=== PATIENT | male | born 1985 | race Caucasian/White ===

== ENCOUNTER 2018-10-17 10:36 | Emergency (ER) | payer OTHER ==
[2018-10-17 10:48] VITALS: BP 132/83
--- NOTE | 2018-10-17 11:08 | ED Physician Documentation ---
PD HPI BACK PAIN - Stated complaint Stated Complaint: BACK PX - Chief complaint Chief Complaint: Back Pain - History obtained from History obtained from: Patient - History of Present Illness Timing - onset: How many days ago (several) Timing - duration: Days (several) Timing - details: Gradual onset Pain level max: 8 Pain level now: 4 Location: Upper, Mid, Right Quality: Pain, Spasm, Similar to prior episodes Associated symptoms: No: Fever, Weakness, Numbness, Incontinent of urine, Unable to urinate, Hematuria, Incontinent of stool Improves with: Rest Worsened by: Movement Contributing factors: Lifting, Twisting, Other (works construction) - Additional information Additional information: has flexeril from his chiropractor, states this helped. Review of Systems Constitutional: denies: Fever Throat: denies: Sore throat Cardiac: denies: Chest pain / pressure Respiratory: denies: Dyspnea, Cough, Hemoptysis, Wheezing GI: denies: Nausea, Vomiting, Diarrhea Skin: denies: Rash Musculoskeletal: denies: Neck pain, Back pain Neurologic: denies: Headache PD PAST MEDICAL HISTORY - Past Medical History Past Medical History: Yes GI: GERD Musculoskeletal: Chronic back pain - Past Surgical History Past Surgical History: No - Present Medications Home Medications: Ambulatory Orders Medication Instructions Recorded Confirmed Cyclobenzaprine [Flexeril] 10 mg PO ONCE 10/17/18 10/17/18 Esomeprazole Magnesium [Nexium] 20 mg PO DAILY 10/17/18 10/17/18 Loratadine [Claritin] 10 mg PO DAILY 10/17/18 10/17/18 Meloxicam [Mobic] 15 mg PO DAILY PRN #20 tablet 10/17/18 Methocarbamol [Robaxin] 500 mg PO Q6H PRN #14 tablet 10/17/18 - Allergies Allergies/Adverse Reactions: Allergies Allergy/AdvReac Type Severity Reaction Status Date / Time No Known Drug Allergies Allergy Verified 10/17/18 10:48 PD ED PE NORMAL - Vitals Vital signs reviewed: Yes - General General: Alert and oriented X 3, No acute distress, Well developed/nourished - HEENT HEENT: Moist mucous membranes - Neck Neck: Supple, no meningeal sign, No bony TTP - Cardiac Cardiac: RRR, No murmur, Strong equal pulses - Respiratory Respiratory: No respiratory distress, Clear bilaterally - Abdomen Abdomen: Normal bowel sounds, Soft, Non tender, Non distended - Back Back: No CVA TTP, No spinal TTP, Other (paraspinal tenderness upper thoracic right side, rhomboid area. NVI. ) - Derm Derm: Warm and dry, No rash - Neuro Neuro: Alert and oriented X 3 - Psych Psych: Normal mood, Normal affect Results - Vitals Vitals: Vital Signs - 24 hr 10/17/18 10:44 Temperature 36.8 C Heart Rate 87 Respiratory 18 Rate Blood Pressure 132/83 H O2 Saturation 99 Oxygen O2 Source Room air PD MEDICAL DECISION MAKING - ED course Complexity details: considered differential (No cauda equina, no spinal epidural abscess, no fracture, no aortic dissection or evidence of aneursym rupture), d/w patient ED course: 32-year-old male presents with a likely rhomboid muscle strain, but also possible paraspinal muscle spasm and strain. Will trial on Robaxin and meloxicam. We will have him follow-up with his doctor for further care. No evidence of epidural abscess, pneumothorax, Cholecystitis. Patient counseled regarding signs and symptoms for which I believe and urgent re-evaluation would be necessary. Patient with good understanding of and agreement to plan and is comfortable going home at this time This document was made in part using voice recognition software. While efforts are made to proofread this document, sound alike and grammatical errors may occur. Departure - Departure Disposition: 01 Home, Self Care Clinical Impression: Back muscle spasm Condition: Good Instructions: ED Spasm Back No Trauma Follow-Up: GINA PATTERSON [Primary Care Provider] - Within 1 week Prescriptions: Meloxicam [Mobic] 15 mg PO DAILY PRN #20 tablet PRN Reason: pain Methocarbamol [Robaxin] 500 mg PO Q6H PRN #14 tablet PRN Reason: back pain Comments: Return if you worsen. Follow-up with your doctor for further care. This should improve over the next few days. Discharge Date/Time: 10/17/18 11:11
== END 2018-10-17 11:11 | disposition home or self-care (01) ==
LOC: ED 10:36
DX: M62.830 Muscle spasm of back (principal)
CPT/HCPCS: 99283